=== PATIENT | female | born 1945 | race African-American/Black ===

== ENCOUNTER → 2019-08-23 | Outpatient (CLI) | payer MEDICARE ==
[~2019-08-23] MED LIST: ACET-3161 GT; AMLO1CAP58 PO; HYDR25TA PO; LATANOPROST AD; LETROZOLE; MELO-106 PO; METANX; SIMV40TA5 PO
== END | disposition home or self-care (01) ==
LOC: NM 07:09
PROVIDERS: ATTEND Internal Medicine Geriatric Medicine
DX: E21.3 Hyperparathyroidism, unspecified (principal)
CPT/HCPCS: 78070; A9500

== ENCOUNTER 2021-08-13 19:50 | Emergency (ER) | payer BC, MEDICARE ==
[~2021-08-13] VITALS: Ht 162.6 cm; Wt 85.0 kg
[~2021-08-13 19:50] MED LIST changes: +SIMV-46 PO; -SIMV40TA5 PO
[2021-08-13 20:10] VITALS: BP 130/67
== END 2021-08-13 20:17 | disposition left against medical advice (07) ==
LOC: ER 19:50
DX: Z53.21 Procedure and treatment not carried out due to patient leaving prior to being seen by health care provider (principal)